=== PATIENT | male | born 1955 | race Caucasian/White ===

== ENCOUNTER 2024-06-18 09:39 | Emergency (ER) | payer OTHER ==
--- NOTE | 2024-06-18 11:05 | RAD REPORT ---
EXAMINATION: ONE VIEW CHEST XR CLINICAL INDICATION: HTN, CAD TECHNIQUE: Frontal chest projection is submitted. Examination is limited by patient positioning and t echnique. COMPARISON: No prior exam. FINDINGS: The lungs are well inflated and clear. The heart is upper limit of normal in size. No displaced fract ures identified. IMPRESSION: No acute intrathoracic abnormalities.
[2024-06-18 11:44] LABS: Absolute Lymphocytes (CBC) 1.5 K/uL (0.7-4.9); Absolute Monocytes 0.6 K/uL (0.1-1.3); Absolute Neutrophil 6.6 K/uL (1.8-8.0); Basophils % 0.5 % (0-1.3); Eosinophils % 0.5 % (0-4.4); Hematocrit 43.4 % (39.6-49.0); Hemoglobin 15.5 g/dL (13.6-17.9); Lymphocytes % 17.3 % (15.3-44.8); MCH 31.2 pg (27.0-35.0); MCHC 35.8 g/dL (32.0-36.0); MCV 87.3 fL (80-100); MPV 7.8 fL (7.6-11.3); Monocytes % 6.9 % (3.3-12.3); Neutrophils % 74.8 % (41.7-73.7); Platelets 269 thou/uL (152-406); RBC Red Blood Cell Count 4.98 M/uL (4.33-5.43)
[2024-06-18 11:50] LABS: PT Prothrombin Time 12.1 SECONDS (10-13.0); Protime INR 1.06
[2024-06-18 12:04] LABS: Albumin 4.2 g/dL (3.4-5.0); Albumin/Globulin Ratio 1.2 (1.1-1.8); Anion Gap 8.3 mEq/L (5.0-15.0); Bilirubin Direct 0.2 mg/dL (0-0.2); Bilirubin Indirect, Calculated 0.8 mg/dL (0.2-0.8); Globulin 3.6 g/dL (2.3-3.5); Magnesium 1.8 mg/dL (1.6-2.4); Potassium 4.3 mEq/L (3.5-5.1); Protein, Total 7.8 g/dL (6.4-8.2); Troponin High Sensitivity 5.2 pg/mL (<58.9)
--- NOTE | 2024-06-18 12:31 | EDPHYS ---
Physician Documentation [facility] Name: Armando Dong Age: 69 yrs Sex: Male : 1955 Arrival Date: 06/18/2024 Time: 09:39 Bed 20 Private MD: ED Physician Morris Magaña HPI: 06/18 11:01 This 69 yrs old Male presents to ER via Ambulatory with complaints of High Blood ms3 Pressure. 11:01 69-year-old male with past medical history of hypertension, coronary artery disease, ms3 myocardial infarction presents to the emergency department for awaking with an elevated blood pressure with sweating. Patient states this occurs approximately every 4 months or so. Patient states he is currently having 3/10 head pressure. Patient denies any alleviating or inciting factors. Historical: - Allergies: 10:06 No Known Allergies; iw - PMHx: 10:06 Hypertensive disorder; CAD; Myocardial infarction; iw - PSHx: 10:06 left hip; cardiac stents; iw - Immunization history:: Adult Immunizations up to date. - Infectious Disease History:: Denies. - Social history:: Smoking status: Patient denies any tobacco usage or history of. ROS: 11:01 Constitutional: Negative for fever, and chills. Cardiovascular: Negative for chest ms3 pain, and palpitations. Respiratory: Negative for shortness of breath, cough, wheezing, and pleuritic chest pain, Abdomen/GI: Negative for abdominal pain, nausea, vomiting, diarrhea, and constipation, MS/Extremity: Negative for injury and deformity, Skin: Negative for injury, rash, and discoloration, Exam: 11:01 Constitutional: This is a well developed, well nourished patient who is awake, alert, ms3 and in no acute distress. Cardiovascular: Regular rate and rhythm with a normal S1 and S2. No gallops, murmurs, or rubs. Normal PMI, no JVD. No pulse deficits. Respiratory: Lungs have equal breath sounds bilaterally, clear to auscultation and percussion. No rales, rhonchi or wheezes noted. No increased work of breathing, no retractions or nasal flaring. Abdomen/GI: Soft, non-tender, with normal bowel sounds. No distension or tympany. No guarding or rebound. No evidence of tenderness throughout. Skin: Warm, dry with normal turgor. Normal color with no rashes, no lesions, and no evidence of cellulitis. 11:02 ECG was reviewed by the Attending Physician. ms3 Vital Signs: 10:04 BP 183 / 88; Pulse 75; Resp 16; Temp 98.5; Pulse Ox 97% on R/A; Weight 113.4 kg; Height iw 6 ft. 1 in. ; 11:56 BP 166 / 86; Pulse 66; Resp 16; Temp 98; Pulse Ox 99% ; bp 12:42 BP 152 / 73; Pulse 61; Resp 16; Pulse Ox 100% ; bp 10:04 Body Mass Index 32.98 (113.40 kg, 185.42 cm) iw MDM: 09:46 Medical Screening Exam initiated ms3 11:01 Differential diagnosis: hypertensive crisis, Malignant HTN, AK versus anxiety. ms3 14:49 Data reviewed: vital signs, nurses notes, and as a result, I will discharge patient. 3 06/18 09:55 Order name: Basic Metabolic Panel; Complete Time: 12:20 06/18 09:55 Order name: CBC with Diff; Complete Time: 12:00 06/18 09:55 Order name: LFT's; Complete Time: 12:20 06/18 09:55 Order name: Magnesium; Complete Time: 12:20 06/18 09:55 Order name: NT PRO-BNP; Complete Time: 12:20 06/18 09:55 Order name: PT-INR; Complete Time: 12:00 06/18 09:55 Order name: Troponin HS; Complete Time: 12:20 06/18 09:55 Order name: XRAY Chest (1 view); Complete Time: 11:09 06/18 09:55 Order name: EKG; Complete Time: 09:56 06/18 09:55 Order name: Cardiac monitoring; Complete Time: 11:55 06/18 09:55 Order name: EKG - Nurse/Tech; Complete Time: 11:55 ms06/18 09:55 Order name: IV Saline Lock; Complete Time: 11:03 06/18 09:55 Order name: Labs collected and sent; Complete Time: 11:03 06/18 09:55 Order name: O2 Per Protocol; Complete Time: 11:55 ms3 06/18 09:55 Order name: O2 Sat Monitoring; Complete Time: 55 ms3 06/18 11:15 Order name: Labs - recollect needed: recollect all tubes; Complete Time: :56 bd EC:02 Rate is 73 beats/min. Rhythm is regular. QRS [place] is Normal. [place] interval is normal. QRS ms3 interval is normal. Clinical impression: Normal ECG. Interpreted by me. Reviewed by me. Administered Medications: No medications were administered Disposition Summary: 06/18/24 12:31 Discharge Ordered Notes: Location: Home ms3 Condition: Stable ms3 Diagnosis - Essential (primary) hypertension ms3 - Headache ms3 Followup: ms3 - With: Abhijeet Serrano DO - When: 2 - 3 days - Reason: Recheck today's complaints Discharge Instructions: - Discharge Summary Sheet ms3 - General Headache Without Cause ms3 - Hypertension, Adult ms3 - DASH Eating Plan ms3 Forms: - Medication Reconciliation Form ms3 - Antibiotic Education ms3 - Prescription Opioid Use ms3 - Patient Portal Instructions ms3 - Leadership Thank You Letter ms3 Signatures: Dispatcher [employer] Beulah To Irene, RN RN Willie Bradshaw RN RN Morris Bright DO DO ms3
--- NOTE | 2024-06-18 12:31 | ER ---
Nurse's Notes [facility] Name: Armando Dong Age: 69 yrs Sex: Male : 1955 Arrival Date: 06/18/2024 Time: 09:39 Bed 20 Private MD: Diagnosis: Essential (primary) hypertension;Headache Presentation: 06/18 10:04 Chief complaint: Patient states: high BP , feels anxious and can feel that his BP is iw high, felt clammy. Coronavirus screen: At this time, the client does not indicate any symptoms associated with coronavirus-19. Ebola Screen: No symptoms or risks identified at this time. Initial Sepsis Screen: Does the patient meet any 2 criteria? No. Patient's initial sepsis screen is negative. Does the patient have a suspected source of infection? No. Patient's initial sepsis screen is negative. Risk Assessment: Do you want to hurt yourself or someone else? Patient reports no desire to harm self or others. Onset of symptoms was June 18, 2024. 10:04 Method Of Arrival: Ambulatory iw 10:04 Acuity: ROSEANNA 3 iw Triage Assessment: 11:57 General: Appears in no apparent distress. comfortable, Behavior is cooperative, bp appropriate for age, anxious. Pain: Denies pain. EENT: No deficits noted. Neuro: No deficits noted. Cardiovascular: Rhythm is sinus rhythm. Respiratory: No deficits noted. GI: No signs and/or symptoms were reported involving the gastrointestinal system. : No signs and/or symptoms were reported regarding the genitourinary system. Derm: No deficits noted. Musculoskeletal: No deficits noted. Historical: - Allergies: 10:06 No Known Allergies; iw - PMHx: 10:06 Hypertensive disorder; CAD; Myocardial infarction; iw - PSHx: 10:06 left hip; cardiac stents; iw - Immunization history:: Adult Immunizations up to date. - Infectious Disease History:: Denies. - Social history:: Smoking status: Patient denies any tobacco usage or history of. Screenin:59 [facility] ED Fall Risk Assessment (Adult) History of falling in the last 3 months, bp including since admission No falls in past 3 months (0 pts) Confusion or Disorientation No (0 pts) Intoxicated or Sedated No (0 pts) Impaired Gait No (0 pts) Mobility Assist Device Used No (0 pt) Altered Elimination No (0 pt) Score/Fall Risk Level 0 - 2 = Low Risk Oriented to surroundings. Abuse screen: Denies threats or abuse. Denies injuries from another. Nutritional screening: No deficits noted. Tuberculosis screening: No symptoms or risk factors identified. Assessment: 11:58 General: Appears in no apparent distress. Behavior is cooperative, appropriate for age, bp anxious. Vital Signs: 10:04 BP 183 / 88; Pulse 75; Resp 16; Temp 98.5; Pulse Ox 97% on R/A; Weight 113.4 kg; Height iw 6 ft. 1 in. ; 11:56 BP 166 / 86; Pulse 66; Resp 16; Temp 98; Pulse Ox 99% ; bp 12:42 BP 152 / 73; Pulse 61; Resp 16; Pulse Ox 100% ; bp 10:04 Body Mass Index 32.98 (113.40 kg, 185.42 cm) iw ED Course: 09:43 Patient arrived in ED. al6 09:45 Morris Magaña DO is Attending Physician. ms3 10:05 Triage completed. iw 10:25 XRAY Chest (1 view) In Process Unspecified. EDMS 11:03 Basic Metabolic Panel Sent. bc6 11:03 CBC with Diff Sent. bc6 11:03 LFT's Sent. bc6 11:03 Magnesium Sent. bc6 11:03 NT PRO-BNP Sent. bc6 11:03 PT-INR Sent. bc6 11:03 Troponin HS Sent. bc6 11:03 Initial lab(s) drawn, by oh, sent to lab. Inserted saline lock: 20 gauge in left bc6 antecubital area, using aseptic technique. Blood collected. Flushed with 10 mL NS. 11:55 Willie Hutchison, RN is Primary Nurse. bp 11:58 Arm band placed on. bp 11:59 Patient has correct armband on for positive identification. bp 12:30 Abhijeet Serrano DO is Referral Physician. ms3 12:41 No provider procedures requiring assistance completed. IV discontinued, intact, bp bleeding controlled, No redness/swelling at site. Pressure dressing applied. Administered Medications: No medications were administered Medication: 12:42 VIS not applicable for this client. bp Outcome: 12:31 Discharge ordered by MD. ms3 12:41 Discharged to home ambulatory, bp 12:41 Condition: stable 12:41 Discharge instructions given to patient, Instructed on discharge instructions, follow up and referral plans. Demonstrated understanding of instructions, follow-up care, 12:43 Patient left the ED. bp Signatures: Dispatcher [employer] Nora Croft RN RN iw Willie Hutchison RN RN bp Morris Magaña DO DO ms3 JoycelynamyLa bc6 Alanna Golden al6 Corrections: (The following items were deleted from the chart) 10: 10:04 Chief complaint: Patient states: high BP , feels anxious and can feel that his iw BPO is high, felt clammy iw 10: 10:04 Coronavirus screen: At this time, the client does not indicate any symptoms iw associated with coronavirus-19. iw
--- NOTE | 2024-06-19 11:48 | EKG ---
Test Date: 2024-06-18 Test Time: 10:13:20 [employer] Machine Tender: RIZWAN MEASUREMENT RESULTS: Intervals: Rate: 73 SC: 144 QRSD: 88 QT: 376 QTc: 414 [place]: P: 10 SC: 144 QRS: 13 T: 17 INTERPRETIVE STATEMENTS: Normal sinus rhythm Normal ECG No previous ECG available for comparison Electronically Signed On 06-19-24 11:46:31 CDT by Pablito Royal
[2024-06-19 14:30] VITALS: TEMP 98
[2024-06-19 14:32] VITALS: BP 152/73; O2SAT 100
== END 2024-06-18 12:43 | disposition home or self-care (01) ==
LOC: ER 09:39
DX: I10 Essential (primary) hypertension (principal); R51.9 Headache, unspecified; I25.2 Old myocardial infarction; Z95.818 Presence of other cardiac implants and grafts
CPT/HCPCS: 36415; 71045; 80048; 80076; 83735; 83880; 84484; 85025; 85610; 93005; 99284